=== PATIENT | female | born 1980 | race Caucasian/White ===

== ENCOUNTER 2021-07-03 10:49 | Day surgery (SDC) | payer SELFPAY ==
[2021-06-30 12:47] VITALS: BMI 27.2
[2021-07-03] MEDS ORDERED: BUPIVACAINE LIPOSOME/PF (EXPAREL) 266 MG/20 ML VIAL ONE (11:53)
[2021-07-03] MEDS ORDERED: SODIUM CHLORIDE 0.9% P/F 10 ML VIAL IJ ONE (11:55)
[2021-07-03] MEDS ORDERED: EPINEPHrine/PF 1 MG/1 ML (1:1,000) AMPULE ONE (11:55)
[2021-07-03] MEDS ORDERED: LIDOCAINE HCL 1%, 10 MG/ML (20ML VIAL) ONE (11:56)
[2021-07-03] MEDS ORDERED: BUPIVACAINE HCL 100 ML ONE ×2 (11:56→12:37)
[2021-07-03] MEDS ORDERED: PROPOFOL 20 ML ONE ×2 (12:09)
[2021-07-03] MEDS ORDERED: SUCCINYLCHOLINE CHLORIDE 200 MG/10 ML SYRINGE ONE (12:09)
[2021-07-03] MEDS ORDERED: fentaNYL CITRATE 250 MCG/5 ML VIAL ONE (12:09)
[2021-07-03] MEDS ORDERED: ROCURONIUM BROMIDE 50 MG/5 ML SYRINGE ONE ×3 (12:09→12:14)
[2021-07-03] MEDS ORDERED: MIDAZOLAM HCL 2 MG/2 ML SINGLE DOSE VIAL ONE (12:10)
[2021-07-03] MEDS ORDERED: SEVOFLURANE 250 ML BTL ONE (12:42)
[2021-07-03] MEDS ORDERED: HYDROmorphone HCL/PF 1 MG/ML VIAL ONE ×2 (13:35)
[2021-07-03] MEDS ORDERED: NEOSTIGMINE METHYLSULFATE 0.5 MG/1 ML - 10 ML MDV ONE (14:08)
[2021-07-03] MEDS ORDERED: GLYCOPYRROLATE 0.2 MG/1 ML VIAL ONE (14:08)
[2021-07-03] MEDS ORDERED: ONDANSETRON 4 MG/2 ML VIAL IVPUSH PRN (14:44)
[2021-07-03] MEDS ORDERED: oxyCODONE HCL 5 MG TABLET PO PRN ×2 (14:44)
[2021-07-03 16:07] VITALS: TEMP 97.7
[2021-07-03 16:12] VITALS: BP 134/72; PULSE 88
== END 2021-07-03 16:14 | disposition home or self-care (01) ==
LOC: FASU 10:49
PROVIDERS: ATTEND Surgery Plastic and Reconstructive Surgery
PROC: 0J080ZZ Alteration of Abdomen Subcutaneous Tissue and Fascia, Open Approach (ICD-10-PCS; principal; 2021-07-03 12:55)
PROC: 0J083ZZ Alteration of Abdomen Subcutaneous Tissue and Fascia, Percutaneous Approach (ICD-10-PCS; 2021-07-03 12:55)
DX: E88.1 Lipodystrophy, not elsewhere classified (principal); M95.8 Other specified acquired deformities of musculoskeletal system
CPT/HCPCS: 84703; 94760